=== PATIENT | female | born 2005 | race Two or more races ===

== ENCOUNTER 2025-05-19 21:23 | Emergency (ER) | payer OTHER ==
[~2025-05-19] VITALS: Ht 162.6 cm; Wt 72.7 kg
[2025-05-19 23:14] LABS: PLATELET COUNT, AUTOMATED 228 10^3/uL (150-450)
[2025-05-19 23:16] VITALS: BP 119/77; TEMP 98.1; O2SAT 99
[2025-05-19 23:37] LABS: AMPHETAMINES LEVEL URINE NEGATIVE (NEGATIVE); BARBITURATES URINE NEGATIVE (NEGATIVE); BENZODIAZEPINES URINE NEGATIVE (NEGATIVE); CANNABINOIDS URINE NEGATIVE (NEGATIVE); COCAINE METABOLITE URINE NEGATIVE (NEGATIVE); METHADONE URINE NEGATIVE (NEGATIVE); OPIATES URINE NEGATIVE (NEGATIVE); PHENCYCLIDINE URINE NEGATIVE (NEGATIVE)
[2025-05-19 23:39] LABS: ETHYL ALCOHOL (ETHANOL) < 0.003 % (0.000-0.010)
[2025-05-19 23:40] LABS: SALICYLATE LEVEL < 3.0 MG/DL (<30)
[2025-05-19 23:41] LABS: ALT/SGPT 25 U/L (7.0-40); AST/SGOT 22 U/L (<34); CALCIUM LEVEL 9.0 MG/DL (8.5-10.1); CARBON DIOXIDE LEVEL 26 MMOL/L (20-31); CHLORIDE LEVEL 102 MMOL/L (98-107); CREATININE FOR GFR 0.83 MG/DL (0.55-1.30); GLOMERULAR FILTRATION RATE > 90.0 (>60); POTASSIUM SERUM 4.8 MMOL/L (3.5-5.1); SODIUM LEVEL 138 MMOL/L (136-145)
[2025-05-19 23:44] LABS: HCG, SERUM QUANTITATIVE < 2.6 MIU/ML (<4.2)
[2025-05-20] MEDS ORDERED: FIOR1CAP PO (00:55)
[2025-05-20] MEDS: FIORICET TAB PO ONE (00:57)
== END 2025-05-20 01:22 | disposition home or self-care (01) ==
LOC: M ED 21:23
DX: F43.9 Reaction to severe stress, unspecified (principal); G43.909 Migraine, unspecified, not intractable, without status migrainosus; Z87.820 Personal history of traumatic brain injury; Z79.899 Other long term (current) drug therapy

== ENCOUNTER → 2025-07-11 | Outpatient (CLI) | payer OTHER ==
[~2025-07-11] MED LIST: FIOR1CAP PO
[2025-07-11 13:29] LABS: PLATELET COUNT, AUTOMATED 196 10^3/uL (150-450)
[2025-07-11 13:59] LABS: HIV 1&2 SCREEN NEGATIVE (NEGATIVE)
[2025-07-11 14:04] LABS: HEPATITIS C VIRUS ABY INDEX < 0.02 INDEX (<0.8)
[2025-07-11 14:57] LABS: Trichomonas vaginalis (AMP) NOT DETECTED (NEGATIVE)
[2025-07-11 15:20] LABS: GC DNA AMPLIFICATION NEGATIVE (NEGATIVE)
== END ==
LOC: M PLALAB 10:29
PROVIDERS: ATTEND Student in an Organized Health Care Education/Training Program
DX: O09.291 Supervision of pregnancy with other poor reproductive or obstetric history, first trimester (principal); Z13.79 Encounter for other screening for genetic and chromosomal anomalies; Z13.71 Encounter for nonprocreative screening for genetic disease carrier status; Z3A.10 10 weeks gestation of pregnancy

== ENCOUNTER 2025-07-28 07:30 | Emergency (ER) | payer OTHER ==
[~2025-07-28] VITALS: Ht 162.6 cm; Wt 75.1 kg
[2025-07-28 07:35] VITALS: BP 107/55; TEMP 97.4; O2SAT 99
== END 2025-07-28 11:02 | disposition left against medical advice (07) ==
LOC: M ED 07:30
DX: Z53.21 Procedure and treatment not carried out due to patient leaving prior to being seen by health care provider (principal)

== ENCOUNTER → 2025-09-17 | Outpatient (CLI) | payer OTHER | LOC: M WHC 13:13 | PROVIDERS: ATTEND Student in an Organized Health Care Education/Training Program | DX: Z34.82 Encounter for supervision of other normal pregnancy, second trimester (principal); Z3A.19 19 weeks gestation of pregnancy ==